=== PATIENT | female | born 1970 | race Caucasian/White ===

== ENCOUNTER 2020-01-21 12:22 | Emergency (ER) | payer MEDICAID ==
--- NOTE | 2020-01-21 13:18 | EDM.PDOC ---
<Pippa Che - Last Filed: 01/21/20 16:05> ED HPI GENERAL MEDICAL PROBLEM - General Chief Complaint: Headache Stated Complaint: 2 MONTH MIGRAINE Time Seen by Provider: 01/21/20 14:00 Source of Information: Reports: Patient, RN, RN Notes Reviewed History Limitations: Reports: No Limitations - History of Present Illness INITIAL COMMENTS - FREE TEXT/NARRATIVE: pt to ER ambulatory with report of migraine for over 2 months. states she has not been taking any medications for over 6 months. Since she moved to [place], she lost her [place] medicaid and could not get medical assistance in [place]. 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 states she did have a medical marijuana card there. pt states she is anxious and has chronic urticaria for which she has been taking OTC benadryl with no relief. reports having taken at least 100 pills of excedrin migraine in the last month with no relief. reports hx of "injections into the back of her neck that are supposed to numb her brain for 6 months." pt states "it only lasted for three weeks." reports hx of mental illness for which she has been hospitalized in the past. [facility] told her she was split personality in addition to bipolar. pt begins to become tearful and states she is tired of feeling this way and just wants someone to help her. denies fever, chills, cough, SOB, CP. admits to n/v, denies diarrhea. - Related Data Allergies Allergy/AdvReac Type Severity Reaction Status Date / Time azithromycin Allergy Cannot Verified 11/06/17 09:09 Remember cefixime [From Suprax] Allergy Cannot Verified 11/06/17 09:09 Remember ciprofloxacin [From Cipro] Allergy Cannot Verified 11/06/17 09:09 Remember ciprofloxacin HCl Allergy Cannot Verified 11/06/17 09:09 [From Cipro] Remember Latex, Natural Rubber Allergy Rash Verified 11/06/17 09:09 sumatriptan [From Imitrex] Allergy Cannot Verified 11/06/17 09:09 Remember sumatriptan succinate Allergy Cannot Verified 11/06/17 09:09 [From Imitrex] Remember venlafaxine HCl Allergy Cannot Verified 11/06/17 09:09 [From Effexor] Remember Home Meds: Home Meds ARIPiprazole [Abilify] 30 mg PO DAILY 03/20/13 [History] Albuterol [Ventolin HFA] 2 puff INH QID PRN 03/20/13 [History] Melatonin/Pyridoxine HCl (B6) [Melatonin 10 mg Tablet] 10 mg PO BEDTIME 12/28/13 [History] Olopatadine [Patanol 0.1% Ophth Soln] 1 drop EYEBOTH Q6H PRN 12/28/13 [History] Pantoprazole [Protonix] 40 mg PO DAILY 12/28/13 [History] diphenhydrAMINE [Benadryl] 25 mg PO BID PRN 12/28/13 [History] hydrOXYzine HCL [hydrOXYzine] 10 mg PO BID 12/28/13 [History] traMADol HCl [Tramadol HCl] 50 mg PO QID PRN 12/28/13 [History] ALPRAZolam [Alprazolam] 0.5 mg PO QID 11/06/17 [History] PARoxetine HCl [Paxil] 40 mg PO DAILY 11/06/17 [History] Pregabalin [Lyrica] 75 mg PO DAILY 11/06/17 [History] Teriparatide [Forteo] 1 dose SQ DAILY 11/06/17 [History] ED ROS GENERAL - Review of Systems Review Of Systems: Comprehensive ROS is negative, except as noted in HPI. - Physical Exam Exam: See Below Exam Limited By: No Limitations General Appearance: Alert, WD/WN, Anxious Eye Exam: Bilateral Eye: EOMI, Normal Inspection Ears: Normal External Exam, Hearing Grossly Normal Nose: Normal Inspection Throat/Mouth: Normal Inspection, No Airway Compromise Head Exam: Normocephalic, Facial Abrasions (8cm abrasion to forehead) Neck: Normal Inspection, Non-Tender Respiratory/Chest: No Respiratory Distress, Lungs Clear, Normal Breath Sounds Cardiovascular: Normal Peripheral Pulses, Regular Rate, Rhythm, No Murmur GI/Abdominal: Normal Bowel Sounds, Soft, Non-Tender (Female) Exam: Deferred Rectal (Female) Exam: Deferred Neuro Exam (Abbreviated): Alert, Oriented, CN II-XII Intact, Normal Reflexes, No Motor/Sensory Deficits Back Exam: Normal Inspection, Full Range of Motion Extremities: Normal Inspection, Normal Range of Motion, Non-Tender, No Pedal Edema, Normal Capillary Refill Psychiatric: Anxious, Tearful Skin Exam: Warm, Dry Departure - Departure Disposition: Home, Self-Care 01 Condition: Good Clinical Impression: Headache Qualifiers: Headache type: unspecified Headache chronicity pattern: chronic headache Intractability: intractable Qualified Code(s): R51.9 - Headache, unspecified - Discharge Information *PRESCRIPTION DRUG MONITORING PROGRAM REVIEWED*: No *COPY OF PRESCRIPTION DRUG MONITORING REPORT IN PATIENT LIBERTAD: No Instructions: Recurrent Migraine Headache Forms: ED Department Discharge Additional Instructions: Rest. Drink plenty of fluids. [facility]. Return to ER if symptoms worsen. 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 Musculoskeletal History: Reports: Back Pain, Chronic, Fibromyalgia, Osteoarthritis Neurological History: Reports: Migraines Psychiatric History: Reports: Anxiety, Bipolar, Depression Endocrine/Metabolic History: Reports: None Hematologic History: Reports: None Immunologic History: Reports: None Oncologic (Cancer) History: Reports: None Dermatologic History: Reports: None, Urticaria - Infectious Disease History Infectious Disease History: Reports: Human Papilloma Virus (HPV) - Past Surgical History Head Surgeries/Procedures: Reports: None Female Surgical History: Reports: Hysterectomy, Oophorectomy Musculoskeletal Surgical History: Reports: Hip Replacement Social & Family History - Family History Family Medical History: No Pertinent Family History - Caffeine Use Caffeine Use: Reports: Soda Course - Vital Signs Last Recorded V/S: Last Vital Signs Temp 98.6 F 01/21/20 14:04 Pulse 82 01/21/20 14:04 Resp 16 01/21/20 14:04 BP 114/81 01/21/20 14:04 Pulse Ox 100 01/21/20 14:04 - Orders/Labs/Meds Meds: Medications Discontinued Medications Generic Name Dose Route Start Last Admin Trade Name Freq PRN Reason Stop Dose Admin Diphenhydramine HCl 50 mg 01/21/20 14:53 01/21/20 15:11 Benadryl IVPUSH 01/21/20 14:54 50 mg ONETIME ONE Administration Sodium Chloride 1,000 mls @ 999 mls/hr 01/21/20 14:53 01/21/20 15:08 Normal Saline IV 01/21/20 15:53 999 mls/hr .BOLUS ONE Administration Ketorolac Tromethamine 30 mg 01/21/20 14:53 01/21/20 15:09 Toradol IVPUSH 01/21/20 14:54 30 mg ONETIME ONE Administration - Radiology Interpretation Free Text/Narrative:: Head CT without contrast: Negative exam. No new intracranial abnormality since December 2015 CT head See radiologist report - Re-Assessments/Exams Free Text/Narrative Re-Assessment/Exam: 01/21/20 15:27 I personally performed or re-performed the physical examination and medical decision making. I have verified all student documentation or findings, including history, physical exam and/or medical decision making. Departure - Departure Time of Disposition: 16:27
[2020-01-21 14:08] VITALS: BP 114/81; PULSE 82
--- NOTE | 2020-01-21 14:46 | CT ---
EXAMINATION: Head wo Cont SEX: Female AGE: 50 years CLINICAL HISTORY: 50-year-old 158 pound female smoker with chronic headache who was reported on previous CT scan head 30 December 2015 (posttraumatic headache from fall) to be "negative". Reevaluate. Scan technique: Volume acquisition of data emergency unenhanced CT scan of the head and brain obtained with the patient lying supine on the Siemens multislice scanner [place], [place]. All data archived in the PACS system for storage, reformatting axial/sagittal/coronal planes and study (bone/soft tissue windows). Interpretation: NEGATIVE exam. No new intracranial abnormality since December 2015 CT head. 1. Uniformly thick bony calvarium and symmetric clear pneumatization of the paranasal and mastoid sinuses. No sign of mucoperiosteal inflammation, antral mass or pathologic air-fluid levels. 2. No skull fracture, underlying brain contusion or abnormal extracerebral/intracranial epidural/subdural hematoma. No membranes or evidence of subdural hygroma. 3. Symmetric lr-white matter pattern with underlying mirror-image normal ventricular system. Physiologic pineal and choroid plexus calcifications. 4. No new supratentorial or posterior fossa mass lesion. Cerebellum and brainstem unremarkable. 5. No ischemic infarcts or signs of encephalomalacia. No arachnoid cyst. 6. No sign of acute intracerebral, intraventricular or subarachnoid bleed.
[2020-01-21] MEDS ORDERED: Sodium Chloride 0.9% 1,000 ML IV ONE (14:53)
[2020-01-21] MEDS ORDERED: Ketorolac 30 MG/ML SDV IVPUSH ONE (14:53)
[2020-01-21] MEDS ORDERED: diphenhydrAMINE 50 MG/ML SDV IVPUSH ONE (14:53)
== END 2020-01-21 16:27 | disposition home or self-care (01) ==
LOC: DL.ED 12:22
DX: S00.81XA Abrasion of other part of head, initial encounter (principal); J44.9 Chronic obstructive pulmonary disease, unspecified; K21.9 Gastro-esophageal reflux disease without esophagitis; F41.9 Anxiety disorder, unspecified; F31.9 Bipolar disorder, unspecified; Z88.1 Allergy status to other antibiotic agents; Z88.8 Allergy status to other drugs, medicaments and biological substances; Z91.040 Latex allergy status; Z79.899 Other long term (current) drug therapy; X58.XXXA Exposure to other specified factors, initial encounter
CPT/HCPCS: 70450; 96374; 96375; 99284-25; J1200; J1885; J7030

== ENCOUNTER 2021-02-24 13:13 | Emergency (ER) | payer MEDICAID, OTHER, SELFPAY ==
[2021-02-24 13:32] VITALS: BP 117/75; PULSE 102
--- NOTE | 2021-02-24 13:47 | EDM.PDOC ---
ED HPI GENERAL MEDICAL PROBLEM - General Chief Complaint: Bite:Animal, Insect Stated Complaint: ATTACKED BY CAT / FACE QUITE SWOLLEN Time Seen by Provider: 02/24/21 13:30 Source of Information: Reports: Patient History Limitations: Reports: No Limitations - History of Present Illness INITIAL COMMENTS - FREE TEXT/NARRATIVE: 51 y/o F c/o facila pain after being bitten by a cat yesterday on the R side of her face. The pt was petting the neighibors cat and unprovoked the cat attacked the pt. The cat is reportedly has no vaccinations. The pt states that her face has become very swollen overnight and has had copious purulent discharge. She has been using tylenol, ibuprofen and marijuana for pain control as well as Bactroban on the wound. She denies fever, chills, db, neck pn, cp, db, abd pn, pelvic pn, ext pain. - Related Data Allergies Allergy/AdvReac Type Severity Reaction Status Date / Time azithromycin Allergy Cannot Verified 02/24/21 13:25 Remember cefixime [From Suprax] Allergy Cannot Verified 02/24/21 13:25 Remember ciprofloxacin [From Cipro] Allergy Cannot Verified 02/24/21 13:25 Remember ciprofloxacin HCl Allergy Cannot Verified 02/24/21 13:25 [From Cipro] Remember Latex, Natural Rubber Allergy Rash Verified 02/24/21 13:25 sumatriptan [From Imitrex] Allergy Cannot Verified 02/24/21 13:25 Remember sumatriptan succinate Allergy Cannot Verified 02/24/21 13:25 [From Imitrex] Remember venlafaxine HCl Allergy Cannot Verified 02/24/21 13:25 [From Effexor] Remember Home Meds: Home Meds Albuterol [Ventolin HFA] 2 puff INH Q6HR PRN 03/20/13 [History] Pantoprazole [ProTONIX] 40 mg PO DAILY 12/28/13 [History] Budesonide/Formoterol [Symbicort 160-4.5 MCG] 2 puff INH BID 05/17/20 [History] Olopatadine HCl [Pataday Once Daily Relief] 1 drop OP DAILY 09/26/20 [History] Fluticasone Propionate [24 Hour Allergy] 1 spray SUKI ASDIRECTED 11/19/20 [History] PARoxetine [Paxil] 20 mg PO DAILY 11/19/20 [History] hydrOXYzine pamoate [Hydroxyzine Pamoate] 50 mg PO Q4HR PRN 11/19/20 [History] Past Medical History HEENT History: Reports: Impaired Vision Cardiovascular History: Reports: Syncope Respiratory History: Reports: Asthma, COPD, Sleep Apnea Gastrointestinal History: Reports: Colon Polyp, GERD, Hemorrhoids Genitourinary History: Reports: None PUBLIC HEALTH NUTRITIONIST History: Reports: Other (See Below) Other PUBLIC HEALTH NUTRITIONIST History: x4 Musculoskeletal History: Reports: Back Pain, Chronic, Fibromyalgia, Osteoarthritis Neurological History: Reports: Migraines Psychiatric History: Reports: Anxiety, Bipolar, Depression Endocrine/Metabolic History: Reports: None Hematologic History: Reports: None Immunologic History: Reports: None Oncologic (Cancer) History: Reports: None Dermatologic History: Reports: None, Urticaria - Infectious Disease History Infectious Disease History: Reports: Human Papilloma Virus (HPV), MRSA Other Infectious Disease History: 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 - Past Surgical History Head Surgeries/Procedures: Reports: None HEENT Surgical History: Reports: Tonsillectomy GI Surgical History: Reports: Colonoscopy, EGD Female Surgical History: Reports: Hysterectomy, Oophorectomy Musculoskeletal Surgical History: Reports: Hip Replacement Social & Family History - Family History Family Medical History: No Pertinent Family History - Tobacco Use Tobacco Use Status *Q: Current Every Day Tobacco User Years of Tobacco use: 42 Packs/Tins Daily: 1 - Caffeine Use Caffeine Use: Reports: Coffee, Soda - Recreational Drug Use Recreational Drug Use: Yes Recreational Drug Type: Reports: Marijuana/Hashish ED ROS GENERAL - Review of Systems Review Of Systems: Comprehensive ROS is negative, except as noted in HPI. ED EXAM, ANIMAL BITE - Physical Exam Exam: See Below Exam Limited By: No Limitations General Appearance: Alert Eye Exam: Bilateral Eye: PERRL Ears: Normal External Exam, Normal Canal, Hearing Grossly Normal, Normal TMs Nose: Normal Inspection, Normal Mucosa, No Blood Throat/Mouth: Normal Voice, No Airway Compromise Head: Other (Significant R facial swelling with multiple punture wounds to the R cheek. ) Neck: Normal Inspection, Supple, Non-Tender, Full Range of Motion Respiratory/Chest: No Respiratory Distress, Lungs Clear, Normal Breath Sounds, No Accessory Muscle Use, Chest Non-Tender Cardiovascular: Normal Peripheral Pulses, Regular Rate, Rhythm, No Edema, No Gallop, No JVD, No Murmur, No Rub GI/Abdominal: Soft, Non-Tender Back Exam: Normal Inspection, Full Range of Motion, NT Extremities: Normal Inspection, Normal Range of Motion, Non-Tender, Normal Capillary Refill, No Pedal Edema Neurological: Alert, Oriented, CN II-XII Intact, Normal Cognition, Normal Gait, Normal Reflexes, No Motor/Sensory Deficits Course - Vital Signs Last Recorded V/S: Last Vital Signs Temp 98.9 F 02/24/21 13:26 Pulse 102 H 02/24/21 13:26 Resp 20 02/24/21 13:26 BP 117/75 02/24/21 13:26 Pulse Ox 95 02/24/21 13:26 - Orders/Labs/Meds Meds: Medications Discontinued Medications Generic Name Dose Route Start Last Admin Trade Name Freq PRN Reason Stop Dose Admin Diphtheria/Tetanus/Acell Pertussis 0.5 ml 02/24/21 14:24 02/24/21 14:54 Diphtheria,Pertussis(Acell),Tetanus Vaccine 0.5 Ml Syringe IM 02/24/21 14:25 0.5 ml .ONCE ONE Administration Levofloxacin/Dextrose 750 mg/ 150 mls @ 100 mls/hr 02/24/21 14:25 02/24/21 14:52 Premix IV 02/24/21 15:54 100 mls/hr ONETIME ONE Administration Rabies Vaccine 2.5 unit 02/24/21 14:23 02/24/21 14:52 Rabies Vaccine (Govind) 2.5 Unit Inj Kit IM 02/24/21 14:24 2.5 unit .ONCE ONE Administration Departure - Departure Time of Disposition: 16:12 Disposition: Home, Self-Care 01 Condition: Fair Clinical Impression: Cat bite Qualifiers: Encounter type: initial encounter Qualified Code(s): W55.01XA - Bitten by cat, initial encounter - Discharge Information *PRESCRIPTION DRUG MONITORING PROGRAM REVIEWED*: Not Applicable *COPY OF PRESCRIPTION DRUG MONITORING REPORT IN PATIENT LIBERTAD: Not Applicable Instructions: Animal Bite, Adult, [id number] Referrals: PCP,None [Primary Care Provider] - Forms: ED Department Discharge Additional Instructions: RX: Levaquin Return to the ER for your next rabies vaccine injection as indicated on the handout that was given to you. Keep your wounds clean and dry. If any new or worsening symptoms develop return to the ER or contact your primary care facility. Follow-up on 02/27/21 for second dose of Rabies vaccine. Sepsis Event Note (ED) - Evaluation Sepsis Screening Result: No Definite Risk
[2021-02-24] MEDS ORDERED: Rabies Vaccine (Avian) 2.5 Unit Inj Kit IM ONE (14:23)
[2021-02-24] MEDS ORDERED: Diphtheria,Pertussis(Acell),Tetanus Vaccine 0.5 ML Syringe IM ONE (14:24)
[2021-02-24] MEDS ORDERED: Levofloxacin/Dextrose 5%-Water 750 MG in Premix Bag 1 BAG IV ONE (14:25)
== END 2021-02-24 16:23 | disposition home or self-care (01) ==
LOC: DL.ED 13:13
DX: S01.431A Puncture wound without foreign body of right cheek and temporomandibular area, initial encounter (principal); J44.9 Chronic obstructive pulmonary disease, unspecified; K21.9 Gastro-esophageal reflux disease without esophagitis; Z23 Encounter for immunization; Z72.0 Tobacco use; Z88.1 Allergy status to other antibiotic agents; Z91.040 Latex allergy status; Z88.8 Allergy status to other drugs, medicaments and biological substances; Z79.899 Other long term (current) drug therapy; W55.01XA Bitten by cat, initial encounter
CPT/HCPCS: 90471; 90675; 90715; 96365; 99283; J1956

== ENCOUNTER 2021-08-06 10:07 | Emergency (ER) | payer MEDICAID ==
[2021-08-06 10:26] VITALS: BP 109/52; PULSE 66
[2021-08-06] MEDS ORDERED: Ondansetron 4 MG/2 ML SDV IVPUSH ONE (10:50)
[2021-08-06] MEDS ORDERED: Morphine 2 MG/ML SYRINGE IVPUSH ONE (10:50)
[2021-08-06] MEDS ORDERED: Sodium Chloride 0.9% 1,000 ML IV ONE (10:50)
[2021-08-06 11:29] LABS: AMPHETAMINES,URINE NEGATIVE (NEGATIVE); BARBITURATES,URINE NEGATIVE (NEGATIVE); BENZODIAZEPINE,URINE NEGATIVE (NEGATIVE); MDMA (ECSTASY), URINE NEGATIVE (NEGATIVE); METHADONE,URINE NEGATIVE (NEGATIVE); METHAMPHETAMINES,URINE NEGATIVE (NEGATIVE); OPIATES,URINE NEGATIVE (NEGATIVE); OXYCODONE,URINE NEGATIVE (NEGATIVE); PHENCYCLIDINE,URINE NEGATIVE (NEGATIVE); TCA,URINE NEGATIVE (NEGATIVE)
[2021-08-06 11:39] LABS: ANION GAP 14.1 mEq/L (7-13); CHLORIDE,CL 104 mmol/L (98-107); SODIUM,NA 141 mmol/L (136-145)
== END 2021-08-06 13:13 | disposition home or self-care (01) ==
LOC: DL.ED 10:07
DX: K59.00 Constipation, unspecified (principal); J44.9 Chronic obstructive pulmonary disease, unspecified; K21.9 Gastro-esophageal reflux disease without esophagitis; F17.210 Nicotine dependence, cigarettes, uncomplicated; E66.9 Obesity, unspecified; Z68.32 Body mass index [BMI] 32.0-32.9, adult; Z88.1 Allergy status to other antibiotic agents; Z91.040 Latex allergy status; Z88.8 Allergy status to other drugs, medicaments and biological substances; Z79.899 Other long term (current) drug therapy
CPT/HCPCS: 36415; 74176; 80053; 80305; 81001; 82150; 83605; 83690; 83735; 85025; 87040; 96361; 96374; 96375; 99284; J2270; J2405; J7030

== ENCOUNTER 2022-05-23 15:58 | Emergency (ER) | payer MEDICAID ==
[2022-05-23 16:20] VITALS: BP 116/76; PULSE 76
== END 2022-05-23 17:08 | disposition home or self-care (01) ==
LOC: DL.ED 15:58
DX: S93.401A Sprain of unspecified ligament of right ankle, initial encounter (principal); J44.9 Chronic obstructive pulmonary disease, unspecified; K21.9 Gastro-esophageal reflux disease without esophagitis; E66.9 Obesity, unspecified; Z68.31 Body mass index [BMI] 31.0-31.9, adult; Z88.1 Allergy status to other antibiotic agents; Z88.8 Allergy status to other drugs, medicaments and biological substances; Z72.0 Tobacco use; X50.1XXA Overexertion from prolonged static or awkward postures, initial encounter
CPT/HCPCS: 73610-RT; 73630-RT; 99283